=== PATIENT | female | born 1980 | race Caucasian/White ===

== ENCOUNTER 2024-06-22 09:26 | Day surgery (SDC) | payer BC, OTHER ==
[~2024-06-22 09:26] MED LIST: Sodium Chloride 0.9% 10 ML Syringe FLUSH PRN; Sodium Chloride 0.9% 2.5 ML Syringe FLUSH PRN; Sodium Chloride 0.9% 20 ML SDV IV PRN
[2024-06-22] MEDS: Lactated Ringers 1,000 ML IV SCH (09:47)
[2024-06-22] MEDS ORDERED: propofoL 500 MG/50 ML 50 ML ONE (10:08)
[2024-06-22] MEDS ORDERED: Lidocaine 2% 5 ML SDV ONE (10:09)
== END 2024-06-22 11:35 | disposition home or self-care (01) ==
LOC: MW.SDS 09:26
PROVIDERS: ATTEND Surgery
DX: Z12.11 Encounter for screening for malignant neoplasm of colon (principal); K63.5 Polyp of colon; K57.30 Diverticulosis of large intestine without perforation or abscess without bleeding; I10 Essential (primary) hypertension; Z87.891 Personal history of nicotine dependence; Z79.899 Other long term (current) drug therapy
CPT/HCPCS: 45380; J2003; J2704; J7120; 00811